=== PATIENT | male | born 1965 | race Caucasian/White ===

== ENCOUNTER 2021-10-20 15:54 | Emergency (ER) | payer MEDICARE, SELFPAY ==
[2021-10-20 16:38] VITALS: BP 145/81; PULSE 81; RESP 17; TEMP 36.8; O2SAT 95; BMI 53.7
--- NOTE | 2021-10-20 16:46 | HMH.EDUTC ---
[facility] [place] Clinical Impression: Hypertension Qualifiers: Hypertension type: primary hypertension Qualified Code(s): I10 - Essential (primary) hypertension Disposition: Home, Self-Care Condition on Discharge: Good Instructions: DI for Malignant Hypertension Additional Instructions: Monitor BP at home Prescriptions: Nebivolol HCl [Bystolic] 2.5 mg PO DAILY 30 Days #30 tab Transmission Status: Pending to [id number] Referrals: Orly Benitez APRN [Primary Care Provider] - Time of Disposition: 17:09 Medical Decision Making - Yony Inquiry Pt receiving controlled substance: No Vital Signs: 10/20/21 16:38 Temperature 98.3 F Temperature Source Oral Pulse Rate [Left Radial] 81 Respiratory Rate 17 Blood Pressure [Right Arm] 145/81 H Blood Pressure Mean [Right Arm] 102 02 Sat by Pulse Oximetry 95 - Lab Data Lab results reviewed: Yes: I reviewed the patient's lab results. [facility] - General Stated complaint: headcahe and possible high blood pressure Time Seen by Provider: 10/20/21 16:46 Source of Information: Patient Description of Symptoms (Recalled from Triage Doc. by RN): patient comes in today for high blood pressure and headache. patient states his blood pressure has been up since this morning. HEENT Symptoms (Recalled from RN notes): Yes Resp Symptoms (Recalled from RN notes): No Skin Symptoms (Recalled from RN notes): No MS Symptoms (Recalled from RN notes): No Functional Status (Recalled from RN notes): wnl - History of Present Illness Provider Complaint: 56 year old white male, states blood pressure has been up all day. Has headache on the top of his head. Checked blood pressure at home - last reading before coming in was 170/110. Takes Diovan 160 mg in the morning, amlodipine 5 mg QHS. Takes Clonidine 0.1 mg PRN. Took 2 clonidine prior to coming. His daughter told him to come get checked out. Blood pressure lower, head still hurts. Denies blurry vision, confusion, sinus pain/pressure, vertigo, chest pain, nausea/vomiting, clamminess, etc. States he has urinated several times today. Urine isn't dark but isn't pale either. He doesn't think he has eaten today. He is under some stress due to his being in with cancer. Onset (ago): day(s) (1) Location: head Relieving factors: none Exacerbating factors: none Associated symptoms: headaches Treatments prior to arrival: other (Clonidine) - Related Data Previous Rx's Medication Instructions Recorded Nebivolol HCl [Bystolic] 2.5 mg PO DAILY 30 Days #30 tab 10/20/21 Allergies Allergy/AdvReac Type Severity Reaction Status Date / Time No Known Allergies Allergy Verified 10/20/21 16:47 - Worker's Comp Is this a Worker's Comp case?: No [facility] History - Hepatitis A Screen Attestation statement:: This patient has been screened for Hepatitis A risk factors. I have reviewed the patient's past medical history: Yes ROS Obtained: Yes All systems reviewed & no additional complaints - Constitutional Constitutional: Reports headache(s) Physical Exam - General General appearance: alert, in no apparent distress - Head Head exam: normocephalic - Eye Eye exam: Present: PERRL - ENT ENT exam: Present: normal oropharynx, TM's normal bilaterally - Neck Neck exam: Present: normal inspection. Absent: lymphadenopathy - Chest Chest inspection: Present: normal inspection, symmetric chest wall rise - Respiratory Respiratory exam: Present: normal lung sounds bilaterally. Absent: respiratory distress - Cardiovascular Cardiovascular exam: Present: regular rate, normal rhythm - Neurological Exam Neurological exam: Present: alert, oriented X3 - Psychiatric Psychiatric exam: Present: normal affect, normal mood - Skin Skin exam: Present: warm, dry, intact
[2021-10-20 17:13] VITALS: BP 145/81; PULSE 81; RESP 17; TEMP 36.8
[2021-10-20 17:14] LABS: POC Glucose,Bedside 98 (70-110)
== END 2021-10-20 17:13 | disposition home or self-care (01) ==
PROVIDERS: Emergency Provider Physician Assistant; PCP Nurse Practitioner
DX: I10 Essential (primary) hypertension (principal); Z79.899 Other long term (current) drug therapy
CPT/HCPCS: 82962; 99212; G0463

== ENCOUNTER 2021-12-01 03:31 | Emergency (ER) | payer MEDICARE, SELFPAY ==
[2021-12-01 03:32] VITALS: BP 119/72; PULSE 85; RESP 19; TEMP 37.1; O2SAT 99; BMI 50.5
--- NOTE | 2021-12-01 03:37 | ECG_ITS ---
APPROVED REPORT Exam: Resting ECG HR:75 bpm ECG Measurements Heart Rate 75 AXES VA 164 P 78 QRSd 97 QRS 69 QT 383 T 60 QTc 412 Conclusion SINUS RHYTHM NORMAL ECG UNCONFIRMED REPORT Electronically signed by : Blas Gallardo MD 12/02/2021 16:25:15
[2021-12-01 03:45] VITALS: BP 114/73; BP 119/72; BP 87/61; PULSE 79; PULSE 84; PULSE 88
--- NOTE | 2021-12-01 03:58 | XR_ITS ---
PROCEDURE INFORMATION: Exam: XR Chest Exam date and time: 12/01/2021 3:52 AM Age: 56 years old Clinical indication: Other: Low blood pressure; Additional info: Low BP TECHNIQUE: Imaging protocol: Radiologic exam of the chest. Views: 2 views. COMPARISON: No relevant prior studies available. FINDINGS: Tubes, catheters and devices: Thoracic nerve stimulator is in place. Lungs: Atelectasis and/or scarring in the mid left lung. Pleural spaces: Small left pleural effusion. No pneumothorax. Heart/Mediastinum: Unremarkable. No cardiomegaly. Bones/joints: ACDF hardware in the cervical spine. IMPRESSION: Small left pleural effusion with atelectasis and/or scarring in the mid left lung.
--- NOTE | 2021-12-01 04:00 | PC.NURSE ---
Pt gone to RAD for CXR
[2021-12-01 04:05] LABS: Basophils # 0.2 K/mm3 (0-0.2); Basophils % 2.7 % (0.1-2.0); Eosinophils # 0.2 K/mm3 (0.0-0.4); Eosinophils % 3.2 % (0.1-12.0); Hematocrit 43.8 % (42.0-52.0); Hemoglobin 14.1 g/dL (14.1-18.0); Lymphocytes # 2.7 K/mm3 (0.7-4.5); Lymphocytes % 38.3 % (10-50); Mean Corpuscular HGB Conc 32.2 g/dL (31.8-35.4); Mean Corpuscular Hemoglobin 30.1 pg (27.0-31.2); Mean Corpuscular Volume 93.5 fl (80-94); Mean Platelet Volume 9.3 fl (7.4-10.4); Monocytes # 0.5 K/mm3 (0.1-1.0); Monocytes % 7.1 % (1.7-9.3); Neutrophils # 3.5 K/mm3 (1.8-7.8); Neutrophils % 48.6 % (37.0-80.0); Platelet Count 184 K/mm3 (142-424); Red Blood Count 4.68 M/mm3 (4.60-6.20); Red Cell Distribution Width 13.9 % (11.5-17.5); White Blood Count 7.1 K/mm3 (4.8-10.8)
[2021-12-01 04:09] LABS: Alanine Aminotransferase 28 U/L (12-78); Albumin Level 3.8 g/dl (3.5-5.0); Alkaline Phosphatase 103 U/L (38-126); Anion Gap 8.5 mEq/L (5-15); Aspartate Amino Transferase 39 U/L (17-59); Bilirubin,Unconjugated 0.3 mg/dL (0.0-1.1); Blood Urea Nitrogen 11 mg/dl (9-20); Calcium 9.5 mg/dl (8.4-10.2); Carbon Dioxide 35 mmol/L (22.0-30.0); Chloride 97 mmol/L (98-107); Creatinine Clearance Estimated 112 mL/min (50-200); Estimated Glomerular Filt Rate 88 ml/min (>60); GFR (African American) 106 ML/MIN (>60); Glucose 141 mg/dl (74-100); Magnesium 1.4 mg/dl (1.6-2.3); Potassium 3.5 mmoL/L (3.5-5.1); Sodium 137 mmol/L (136-145); Total Protein,Serum 6.5 g/dl (6.3-8.2)
[2021-12-01 04:11] VITALS: BP 111/66; PULSE 73; O2SAT 96
[2021-12-01 04:14] LABS: Bilirubin,Direct < 0.1 mg/dl (0.0-0.4); Bilirubin,Total < 0.1 mg/dl (0.2-1.3); C-Reactive Protein 5.1 mg/L (0-4)
[2021-12-01 04:20] LABS: NT Pro Brain Natriuretic Pep. 13.9 pg/mL (0-125)
[2021-12-01 04:28] LABS: Procalcitonin 0.076 ng/mL (0.0-2.0)
[2021-12-01 04:31] LABS: Erythrocyte Sedimentation Rate 18 mm/hr (0-20)
[2021-12-01 04:32] LABS: Troponin I < 0.01 ng/ml (0.00-0.034)
[2021-12-01 04:36] VITALS: BP 120/79; PULSE 76; O2SAT 96
--- NOTE | 2021-12-01 04:53 | PC.NURSE ---
PT UPDATED WITH POC. IVF INFUSING WITHOUT DIFFICULTY. PT DENIES ALL CARE NEEDS. FAMILY REMAINS AT BEDSIDE. WCM.
--- NOTE | 2021-12-01 05:05 | HMH.EDDIZZ ---
ED Disposition Clinical Impression: Orthostatic hypotension Disposition: Home, Self-Care Condition on Discharge: Good Instructions: Dizziness, Nonvertigo Additional Instructions: will adjust meds Referrals: Orly Benitez APRN [Primary Care Provider] - - Critical Care Critical Care Time: No Attestation: On 12/01/21, the high probability of a clinically significant, sudden or life threatening deterioration of the following system(s) required my full and direct attention, intervention and personal management. The time I documented below is in addition to time spent performing reported procedures but includes the following listed in this critical care notation. Medical Decision Making - Medical Records Medical records reviewed: Yes: I reviewed the patient's medical records. - Oyny Inquiry Pt receiving controlled substance: No Vital Signs: 12/01/21 03:32 12/01/21 03:45 12/01/21 04:11 Temperature 98.7 F Temperature Source Oral Pulse Rate 73 Pulse Rate [Orthostatic Lying] 84 Pulse Rate [Orthostatic Sitting] 79 Pulse Rate [Orthostatic Standing] 88 Pulse Rate [Right] 85 Respiratory Rate 19 Blood Pressure 111/66 Blood Pressure [Orthostatic Lying] 114/73 Blood Pressure [Orthostatic Sitting] 119/72 Blood Pressure [Orthostatic Standing] 87/61 L Blood Pressure [Right Arm] 119/72 Blood Pressure Mean 81 Blood Pressure Mean [Right Arm] 87 Blood Pressure Source [Right Arm] Automatic Cuff 02 Sat by Pulse Oximetry 99 96 Oxygen Delivery Method Room Air 12/01/21 04:36 Temperature Temperature Source Pulse Rate 76 Pulse Rate [Orthostatic Lying] Pulse Rate [Orthostatic Sitting] Pulse Rate [Orthostatic Standing] Pulse Rate [Right] Respiratory Rate Blood Pressure 120/79 Blood Pressure [Orthostatic Lying] Blood Pressure [Orthostatic Sitting] Blood Pressure [Orthostatic Standing] Blood Pressure [Right Arm] Blood Pressure Mean 92 Blood Pressure Mean [Right Arm] Blood Pressure Source [Right Arm] 02 Sat by Pulse Oximetry 96 Oxygen Delivery Method - Lab Data Lab results reviewed: Yes: I reviewed the patient's lab results. Lab Results 12/01/21 03:48: WBC 7.1, RBC 4.68, Hgb 14.1, Hct 43.8, MCV 93.5, MCH 30.1, MCHC 32.2, RDW 13.9, Plt Count 184, MPV 9.3, Neut % (Auto) 48.6, Lymph % (Auto) 38.3, Early % (Auto) 7.1, Eos % (Auto) 3.2, Baso % (Auto) 2.7 H, Neut # (Auto) 3.5, Lymph # (Auto) 2.7, Early # (Auto) 0.5, Eos # (Auto) 0.2, Baso # (Auto) 0.2, ESR 18 12/01/21 03:48: Sodium 137, Potassium 3.5, Chloride 97 L, Carbon Dioxide 35 H, Anion Gap 8.5, BUN 11, Creatinine 0.90, Estimated Creat Clear 112, Estimated GFR 88, Est GFR ( Amer) 106, Glucose 141 H, Calcium 9.5, Magnesium 1.4 L, Total Bilirubin < 0.1 L, Direct Bilirubin < 0.1, Conjugated Bilirubin 0.0, Indirect Bilirubin 0.0, Unconjugated Bilirubin 0.3, AST 39, ALT 28, Alkaline Phosphatase 103, Troponin I < 0.01, C-Reactive Protein 5.1 H, Total Protein 6.5, Albumin 3.8, Procalcitonin 0.076 12/01/21 03:48: NT-Pro-B Natriuret Pep 13.9 Result diagrams: 12/01/21 03:48 12/01/21 03:48 Orders (Tests/Meds): ED MEDICATIONS Generic Name Dose Route Start Last Admin Trade Name Freq PRN Reason Stop Dose Admin Sodium Chloride 1,000 mls @ 999 mls/hr 12/01/21 04:00 12/01/21 04:09 Sod Chlor 0.9% 1000ml Bag IV 12/01/21 05:00 999 mls/hr .Q1H1M MEERA Administration ORDERS Category Date Time Status CXR 2 view (NOT portable) [XR chest 2V] Stat Exams 12/01/21 03:58 Taken Troponin I Q3H Lab 12/01/21 07:00 Ordered Troponin I Q3H Lab 12/01/21 10:00 Ordered - ECG Data Tracing #1 Normal Sinus Rhythm: Yes Ischemic changes: non-specific ST-T wave changes - SUNITA Score for Non-Stemi Age of Patient: 50-59 years old Heart Rate: 70-89 bpm Systolic Blood Pressure: 100-119 mmHg Serum Creatinine: 0.80-1.19 mg/dl CHF Killip Class: I-No CHF Other Risk Factors: None Non-Stemi Risk Score: 100
[2021-12-01 05:23] VITALS: BP 131/84; PULSE 79; RESP 18; TEMP 36.7; O2SAT 98
== END 2021-12-01 05:24 | disposition home or self-care (01) ==
PROVIDERS: Emergency Provider Emergency Medicine; PCP Nurse Practitioner
DX: I95.1 Orthostatic hypotension (principal)
CPT/HCPCS: 71046; 80048; 80076; 83735; 83880; 84145; 84484; 85025; 85651; 86140; 93005; 96361; 99284

== ENCOUNTER 2022-06-13 11:45 | Emergency (ER) | payer MEDICARE, SELFPAY ==
[2022-06-13 11:45] VITALS: BP 156/105; PULSE 71; RESP 18; TEMP 36.7; O2SAT 95; BMI 54.3
--- NOTE | 2022-06-13 11:57 | ECG_ITS ---
APPROVED REPORT Exam: Resting ECG HR:71 bpm ECG Measurements Heart Rate 71 AXES [place] 173 P 71 QRSd 97 QRS 69 QT 386 T 51 QTc 408 Conclusion SINUS RHYTHM NORMAL ECG UNCONFIRMED REPORT Electronically signed by : Blas Gallardo MD 06/13/2022 14:22:09
--- NOTE | 2022-06-13 12:08 | XR_ITS ---
FINAL REPORT CLINICAL HISTORY: soa x2 days COMPARISON: 12/01/2021 FINDINGS: PORTABLE CHEST The heart is normal in size. The mediastinum is unremarkable. The lungs are clear. There is no pneumothorax. IMPRESSION: No acute process. Reviewed, Interpreted and Dictated by Poornima Pritchard MD Transcribed by Carlie Clemons Authenticated and [facility]
[2022-06-13 12:25] LABS: Basophils # 0.1 K/mm3 (0-0.2); Basophils % 1.2 % (0.1-2.0); Eosinophils # 0.2 K/mm3 (0.0-0.4); Eosinophils % 3.2 % (0.1-12.0); Hematocrit 37.6 % (42.0-52.0); Hemoglobin 12.6 g/dL (14.1-18.0); Lymphocytes # 1.8 K/mm3 (0.7-4.5); Lymphocytes % 24.3 % (10-50); Mean Corpuscular HGB Conc 33.5 g/dL (31.8-35.4); Mean Corpuscular Hemoglobin 30.3 pg (27.0-31.2); Mean Corpuscular Volume 90.4 fl (80-94); Monocytes # 0.3 K/mm3 (0.1-1.0); Monocytes % 4.7 % (1.7-9.3); Neutrophils # 4.8 K/mm3 (1.8-7.8); Neutrophils % 66.6 % (37.0-80.0); Platelet Count 187 K/mm3 (142-424); Red Blood Count 4.16 M/mm3 (4.60-6.20); Red Cell Distribution Width 14.4 % (11.5-17.5); White Blood Count 7.2 K/mm3 (4.8-10.8)
[2022-06-13 12:26] LABS: Alanine Aminotransferase 25 U/L (12-78); Albumin/Globulin Ratio 1.5 (1.1-1.8); Alkaline Phosphatase 110 U/L (38-126); Anion Gap 8.3 mEq/L (5-15); Aspartate Amino Transferase 36 U/L (17-59); Bilirubin,Total 0.6 mg/dl (0.2-1.3); Blood Urea Nitrogen 7 mg/dl (9-20); Carbon Dioxide 34 mmol/L (22.0-30.0); Chloride 98 mmol/L (98-107); Creatinine Clearance Estimated 144 mL/min (50-200); Estimated Glomerular Filt Rate 118 ml/min (>60); GFR (African American) 142 ML/MIN (>60); Globulin 2.6 g/dL (1.3-3.2); Glucose 130 mg/dl (74-100); Potassium 3.3 mmoL/L (3.5-5.1); Sodium 137 mmol/L (136-145); Total Protein,Serum 6.6 g/dl (6.3-8.2)
[2022-06-13 12:31] LABS: D-Dimer 0.72 ug/mL (0.0-0.5)
--- NOTE | 2022-06-13 12:35 | CT_ITS ---
FINAL REPORT TECHNIQUE: Thin section axial CT with contrast with multiplanar reconstruction. This study was performed with techniques to keep radiation doses as low as reasonably achievable (ALARA). Individualized dose reduction techniques using automated exposure control or adjustment of mA and/or kV according to the patient's size were employed. CLINICAL HISTORY: Dimer elevated, SOA FINDINGS: Pulmonary vessels enhance in normal fashion without evidence of embolism. Thoracic aorta shows no dissection or aneurysm. No pulmonary mass or infiltrate is present. There are scattered areas of scarring, likely sequela of prior pneumonia, greatest in the left lower lobe. There is left pleural scarring. There is no significant pleural effusion. There is no significant pericardial effusion. No mediastinal or hilar adenopathy is present. There is a small hiatal hernia. IMPRESSION: No evidence of pulmonary embolism. Reviewed, Interpreted and Dictated by Poornima Pritchard MD Transcribed by Jessica Way Authenticated and [facility]
--- NOTE | 2022-06-13 12:37 | HMH.EDGENADL ---
Discharge Plan Disposition Patient Disposition: Home, Self-Care Prescriptions Prescriptions: No Action nebivolol 2.5 MG tablet 2.5 mg PO DAILY 30 Days Qty: 30 0RF Referrals Follow up/Referrals: Orly Benitez APRN [Primary Care Provider] - See instructions Activity Restrictions/Add. Instructions Additional Instructions/Restrictions: Follow-up with your primary care physician within the next few days. Return the emergency room for chest pain difficulty breathing or any other concerns within the next 8 hours Clinical Impressions Clinical Impression: Acute dyspnea Discharge ED Provider: Goyo Ellis General Adult HPI General Chief complaint: Shortness of Breath/Dyspnea Stated complaint: sob Time Seen by Provider: 06/13/22 12:10 Mode of Arrival: Ambulatory Source of Information: Patient Limitations: No Limitations Description of Symptoms (Recalled from ER Triage Doc. by RN): Pt reports SOA x2 days. Denies fever, cough, chest pain. Pt reports hx of afib with hx of ablation x2. History of Present Illness HPI narrative: 56-year-old male with history of hypertension and sleep apnea presents with shortness of air for last few days he says that he cannot catch his breath. It is worse with exertion. No chest pain. No abdominal pain nausea vomiting diarrhea. No leg swelling recent surgeries recent travel or history of pulmonary embolisms or deep venous thrombosis. No fever no cough no exposures to COVID. He says that the symptoms have been worse since he got COVID and was concerned about long COVID as well Related Data Previous Rx's Medication Instructions Recorded nebivolol 2.5 mg tablet 2.5 mg PO DAILY 30 days #30 tabs 10/20/21 Allergies Allergy/AdvReac Type Severity Reaction Status Date / Time No Known Allergies Allergy Verified 10/20/21 16:47 [facility] Disclaimer: The information contained in this section may have been updated after the patient was seen, as this information can be updated by other users. Social History Smoking Status: Former smoker alcohol intake: never current occupational status: employed Travel in the last 8 weeks: None ROS Obtained: Yes All systems reviewed & no additional complaints except as documented Constitutional Constitutional: Denies fatigue and Denies fever(s) Eyes Eyes: Denies dry eyes ENT Ears, Nose, Mouth, and Throat: Denies hearing loss and Denies throat swelling Cardiovascular Cardiovascular: Denies chest pain, Denies diaphoresis, Reports dyspnea and Reports dyspnea on exertion Respiratory Respiratory: Reports dyspnea and Reports dyspnea on exertion Gastrointestinal Gastrointestingal: Denies abdominal pain, diarrhea, nausea or vomiting Musculoskeletal Musculoskeletal: Denies abnormal gait and Denies arthralgias Integumentary/Breasts Skin/Breast: Denies dry skin and Denies rash Neurologic Neurologic: Denies abnormal gait Endocrine Endocrine: Denies fatigue Hematologic/Lymphatic Henatologic/Lymphatic: Denies easy bleeding Allergic/Immunologic Allergic/Immunologic: Denies throat swelling Physical Exam General General appearance: alert and in no apparent distress Eye Eye exam: Present PERRL and EOMI ENT ENT exam: Present normal exam and normal oropharynx Neck Neck exam: Present normal inspection Chest Chest inspection: Present symmetric chest wall rise Respiratory Respiratory exam: Present normal lung sounds bilaterally; Absent respiratory distress Cardiovascular Cardiovascular exam: Present regular rate and normal rhythm Abdominal Exam Abdominal exam: Present soft; Absent distention, tenderness, guarding, rebound, Arrieta's sign or tenderness at McBurney's Point Rectal Exam Rectal exam: Present deferred Back Exam Back exam: Present normal inspection Neurological Exam Neurological exam: Present alert and oriented X3 Psychiatric Psychiatric exam: Present normal affect and normal mood Skin Skin exam: Present warm, dry and intact Lymph
[2022-06-13 12:39] LABS: NT Pro Brain Natriuretic Pep. 108 pg/mL (0-125)
[2022-06-13 12:41] LABS: Troponin I < 0.01 ng/ml (0.00-0.034)
[2022-06-13 12:44] LABS: Coronavirus 19, PCR Not Detected (NotDetected); Influenza A, PCR Not Detected (NotDetected); Influenza B, PCR Not Detected (NotDetected)
--- NOTE | 2022-06-13 13:40 | PC.NURSE ---
pt resting in bed, given warm blanket and pillow, updated pt we are waiting on cta results
[2022-06-13 13:41] VITALS: BP 171/103; PULSE 68; RESP 19; O2SAT 94
[2022-06-13 14:01] VITALS: BP 173/100; PULSE 62; RESP 18; O2SAT 94
[2022-06-13 15:01] VITALS: BP 169/111; PULSE 69; RESP 18; O2SAT 93
[2022-06-13 15:31] VITALS: BP 165/90; PULSE 69; RESP 16; O2SAT 94
--- NOTE | 2022-06-13 16:09 | PC.NURSE ---
lab states 8 minutes until result of troponin
[2022-06-13 16:18] LABS: Troponin I < 0.01 ng/ml (0.00-0.034)
[2022-06-13 16:39] VITALS: BP 150/99; PULSE 73; RESP 18; TEMP 36.7; O2SAT 93
== END 2022-06-13 16:39 | disposition home or self-care (01) ==
PROVIDERS: Emergency Provider Emergency Medicine; PCP Nurse Practitioner
DX: R06.00 Dyspnea, unspecified (principal); R06.02 Shortness of breath; I10 Essential (primary) hypertension; Z87.891 Personal history of nicotine dependence
CPT/HCPCS: 36415; 71045; 71275; 80053; 83880; 84484; 85025; 85378; 93005; 99285; C9803; Q9967; U0003; U0005

== ENCOUNTER → 2022-09-19 10:33 | Outpatient (CLI) | payer MEDICARE, SELFPAY ==
[2022-09-19 15:40] LABS: Chloride 88 mmol/L (98-107)
[2022-09-19 15:41] LABS: Potassium 3.1 mmoL/L (3.5-5.1); Sodium 137 mmol/L (136-145)
[2022-09-19 15:43] LABS: Alanine Aminotransferase 28 U/L (12-78); Albumin Level 3.8 g/dl (3.5-5.0); Albumin/Globulin Ratio 1.7 (1.1-1.8); Alkaline Phosphatase 102 U/L (38-126); Anion Gap 17.1 mEq/L (5-15); Aspartate Amino Transferase 46 U/L (17-59); Bilirubin,Total 0.5 mg/dl (0.2-1.3); Blood Urea Nitrogen 10 mg/dl (9-20); Carbon Dioxide 35 mmol/L (22.0-30.0); Estimated Glomerular Filt Rate 88 ml/min (>60); GFR (African American) 106 ML/MIN (>60); Globulin 2.2 g/dL (1.3-3.2)
[2022-09-19 15:44] LABS: Calcium 9.2 mg/dl (8.4-10.2); Cholesterol 184 mg/dl (140-200); Glucose 125 mg/dl (74-100); HDL Cholesterol 46 mg/dl (40-60); Triglycerides 160 mg/dl (30-150); VLDL Cholesterol 32 mg/dL (0-40)
[2022-09-19 15:55] LABS: Direct LDL Cholesterol 119.84 mg/dL (100-129)
[2022-09-19 15:58] LABS: Basophils % 0.8 % (0.1-2.0); Eosinophils # 0.2 K/mm3 (0.0-0.4); Eosinophils % 3.5 % (0.1-12.0); Hematocrit 41.7 % (42.0-52.0); Hemoglobin 13.5 g/dL (14.1-18.0); Lymphocytes # 2.3 K/mm3 (0.7-4.5); Lymphocytes % 43.2 % (10-50); Mean Corpuscular HGB Conc 32.4 g/dL (31.8-35.4); Mean Corpuscular Volume 89.3 fl (80-94); Mean Platelet Volume 9.6 fl (7.4-10.4); Monocytes # 0.3 K/mm3 (0.1-1.0); Monocytes % 6.2 % (1.7-9.3); Neutrophils # 2.4 K/mm3 (1.8-7.8); Neutrophils % 46.2 % (37.0-80.0); Platelet Count 175 K/mm3 (142-424); Red Blood Count 4.67 M/mm3 (4.60-6.20); Red Cell Distribution Width 13.9 % (11.5-17.5); White Blood Count 5.3 K/mm3 (4.8-10.8)
[2022-09-19 17:39] LABS: 25-OH Vitamin D, Total 40.5 ng/mL (30-100)
[2022-09-19 20:16] LABS: Prostate Specific Ag Screen 0.5 ng/ml (0.0-4.0)
== END ==
PROVIDERS: PCP Nurse Practitioner Family; Visit Provider Nurse Practitioner Family
DX: Z12.5 Encounter for screening for malignant neoplasm of prostate (principal); I10 Essential (primary) hypertension; E55.9 Vitamin D deficiency, unspecified
CPT/HCPCS: 80053; 80061; 82306; 84443; 85025; G0103

== ENCOUNTER → 2022-11-11 12:36 | Outpatient (CLI) | payer MEDICARE, SELFPAY | LOC: RT 12:37 | PROVIDERS: PCP Nurse Practitioner Family; Visit Provider Nurse Practitioner Family | DX: I10 Essential (primary) hypertension (principal); R06.09 Other forms of dyspnea | CPT/HCPCS: 93306 ==

== ENCOUNTER 2023-08-06 14:00 | Outpatient (CLI) | payer MEDICARE, SELFPAY ==
--- NOTE | 2023-08-06 14:01 | CA_ITS ---
APPROVED REPORT EXAM: Comprehensive 2D, Doppler, and color-flow Echocardiogram Stave Block Splitter: Opal Garrido CRT Ht: 6 ft 3 in Wt: 434lbs BSA: 3.05 BP: 135/83 mmHg Indications: Shortness of Breath, Atrial Fibrillation, Obesity, Dyspnea, Hyperlipidemia, Hypertension/HDD, ABLATION 2009, 2011 2D Dimensions LA Volume 55.10 mL LA Volume Index 17.70 mL/m2 (M/F) 16-34 M-Mode Dimensions RVDd 3.44 cm (0.9-2.6) LA Diam 4.02 cm (1.9-4.0) LVDd 4.52 cm (3.5-5.7) LVDs 2.72 cm (3.5-5.7) IVSd 1.85 cm (0.6-1.1) PWd 1.08 cm (0.6-1.1) EF (Teich) 70.60% FS 39.80% EDV (Teich) 93.40 mL TAPSE 2.21 (<1.7) ESV (Teich) 27.50 mL LV Diastology E Decel Time 157 (160-240 msec) E/A Ratio 0.99 MED A' 9.20 cm/s LAT A' 9.70 cm/s Aortic Valve AO Peak GR. 5.10 mmHg Mitral Valve MV A Velocity 60.0 (40-130 cm/s) E/A Ratio 0.99 Pulmonary Valve PV Peak Velocity 76.0 (50-150 cm/s) Tricuspid Valve TR P. Velocity 82.00 cm/s RAP Estimate 10.00 mmHg RVSP 12.70 mmHg Left Ventricle The left ventricle is normal size. The left ventricular systolic function is normal. The left ventricular ejection fraction is within the normal range. There is normal left ventricular wall thickness. There is normal LV segmental wall motion. The left ventricular diastolic function is normal. LVEF is 55%. Right Ventricle The right ventricle is not very well-visualized, but is grossly normal in size and function. Atria The left atrium size is normal. The right atrium is not well-visualized. The interatrial septum is not well-visualized. Aortic Valve The aortic valve opens well. There is no aortic valvular stenosis. No aortic regurgitation is present. Mitral Valve The mitral valve is normal in structure. No evidence of mitral valve stenosis. There is no mitral valve regurgitation noted. Tricuspid Valve The tricuspid valve leaflets are thin and pliable. Trace tricuspid regurgitation. There is insufficient TR jet to estimate RVSP. Pulmonic Valve The pulmonary valve is not well visualized. Great Vessels The aortic root is normal in size. The ascending aorta is normal in size. The IVC is not well-visualized. Pericardium There is no pericardial effusion. Other Information Study Quality: Technically Difficult Conclusion Technically difficult study due to poor acoustic windows Normal biventricular systolic function. No significant valvular stenosis or regurgitation in the visualized valves. Electronically signed by : Gricelda Vargas MD 08/10/2023 19:02:30
[2023-08-06 15:08] LABS: Basophils # 0.1 K/mm3 (0-0.2); Basophils % 1.4 % (0.1-2.0); Eosinophils # 0.2 K/mm3 (0.0-0.4); Eosinophils % 2.8 % (0.1-12.0); Hematocrit 44.2 % (42.0-52.0); Lymphocytes % 27.9 % (10-50); Mean Corpuscular HGB Conc 33.9 g/dL (31.8-35.4); Mean Corpuscular Hemoglobin 31.2 pg (27.0-31.2); Mean Platelet Volume 9.1 fl (7.4-10.4); Monocytes # 0.5 K/mm3 (0.1-1.0); Monocytes % 6.4 % (1.7-9.3); Neutrophils # 4.5 K/mm3 (1.8-7.8); Neutrophils % 61.7 % (37.0-80.0); Platelet Count 208 K/mm3 (142-424); Red Cell Distribution Width 13.9 % (11.5-17.5); White Blood Count 7.3 K/mm3 (4.8-10.8)
[2023-08-06 16:07] LABS: Chloride 93 mmol/L (98-107); Sodium 137 mmol/L (136-145)
[2023-08-06 16:08] LABS: Potassium 3.1 mmoL/L (3.5-5.1)
[2023-08-06 16:10] LABS: Alanine Aminotransferase 28 U/L (12-78); Albumin Level 3.8 g/dl (3.5-5.0); Alkaline Phosphatase 99 U/L (38-126); Aspartate Amino Transferase 46 U/L (17-59); Bilirubin,Direct 0.2 mg/dl (0.0-0.4); Bilirubin,Indirect 0.2 mg/dL (0.0-0.9); Bilirubin,Total 0.4 mg/dl (0.2-1.3); Bilirubin,Unconjugated 0.2 mg/dL (0.0-1.1); Blood Urea Nitrogen 12 mg/dl (9-20); Calcium 9.2 mg/dl (8.4-10.2); Cholesterol 215 mg/dl (140-200); Estimated Glomerular Filt Rate 100 ml/min (>60); GFR (African American) 121 ML/MIN (>60); Glucose 137 mg/dl (74-100); Total Protein,Serum 6.3 g/dl (6.3-8.2); Triglycerides 230 mg/dl (30-150); VLDL Cholesterol 46 mg/dL (0-40)
[2023-08-06 16:11] LABS: Chol/HDL Ratio 5.5 (1-3.5); HDL Cholesterol 39 mg/dl (40-60); Magnesium 1.3 mg/dl (1.6-2.3)
[2023-08-06 16:17] LABS: Anion Gap 8.1 mEq/L (5-15); Carbon Dioxide 39 mmol/L (22.0-30.0)
[2023-08-06 16:29] LABS: Direct LDL Cholesterol 124.48 mg/dL (100-129); Free T4 (Free Thyroxine) 1.16 ng/dl (0.78-2.19)
[2023-08-06 16:42] LABS: Thyroid Stimulating Hormone 2.47 uIU/mL (0.465-4.68)
== END 2023-08-06 23:59 ==
PROVIDERS: PCP Nurse Practitioner Family; Visit Provider Physician Assistant
DX: I10 Essential (primary) hypertension (principal); Z98.890 Other specified postprocedural states; E78.5 Hyperlipidemia, unspecified; R06.09 Other forms of dyspnea; Z79.899 Other long term (current) drug therapy
CPT/HCPCS: 36415; 80048; 80061; 80076; 83735; 84439; 84443; 85025; 93306

== ENCOUNTER 2024-08-17 11:05 | Outpatient (CLI) | payer MEDICARE, SELFPAY ==
[2024-08-17 18:45] LABS: Basophils # 0.1 K/mm3 (0-0.2); Basophils % 1.7 % (0.1-2.0); Eosinophils # 0.2 K/mm3 (0.0-0.4); Eosinophils % 3.2 % (0.1-12.0); Hematocrit 44.8 % (42.0-52.0); Hemoglobin 14.5 g/dL (14.1-18.0); Lymphocytes # 1.7 K/mm3 (0.7-4.5); Lymphocytes % 28.5 % (10-50); Mean Corpuscular HGB Conc 32.4 g/dL (31.8-35.4); Mean Corpuscular Hemoglobin 29.2 pg (27.0-31.2); Mean Corpuscular Volume 90.1 fl (80-94); Mean Platelet Volume 11.6 fl (7.4-10.4); Monocytes # 0.5 K/mm3 (0.1-1.0); Monocytes % 8.2 % (1.7-9.3); Neutrophils # 3.5 K/mm3 (1.8-7.8); Neutrophils % 58.2 % (37.0-80.0); Platelet Count 192 K/mm3 (142-424); Red Blood Count 4.97 M/mm3 (4.60-6.20); Red Cell Distribution Width 13.1 % (11.5-17.5)
[2024-08-17 20:28] LABS: Alanine Aminotransferase 28 U/L (12-78); Albumin/Globulin Ratio 1.5 (1.1-1.8); Alkaline Phosphatase 108 U/L (38-126); Anion Gap 9.1 mEq/L (5-15); Aspartate Amino Transferase 40 U/L (17-59); Bilirubin,Total 0.6 mg/dl (0.2-1.3); Blood Urea Nitrogen 11 mg/dl (9-20); Calcium 9.9 mg/dl (8.4-10.2); Carbon Dioxide 38 mmol/L (22.0-30.0); Chloride 95 mmol/L (98-107); Chol/HDL Ratio 3.1 (1-3.5); Cholesterol 178 mg/dl (140-200); Estimated Glomerular Filt Rate 100 ml/min (>60); GFR (African American) 121 ML/MIN (>60); Globulin 2.7 g/dL (1.3-3.2); Glucose 92 mg/dl (74-100); HDL Cholesterol 57 mg/dl (40-60); Potassium 4.1 mmoL/L (3.5-5.1); Sodium 138 mmol/L (136-145); Total Protein,Serum 6.7 g/dl (6.3-8.2); Triglycerides 103 mg/dl (30-150); VLDL Cholesterol 21 mg/dL (0-40)
[2024-08-17 20:45] LABS: Hemoglobin A1C 5.6 % (4.0-6.0)
[2024-08-17 20:57] LABS: Prostate Specific Ag Screen 0.5 ng/ml (0.0-4.0); Thyroid Stimulating Hormone 5.31 uIU/mL (0.465-4.68)
[2024-08-17 21:11] LABS: HIV Combo NEGATIVE (Negative)
[2024-08-17 21:16] LABS: Hepatitis C Ab Qual. W/ RFX NEGATIVE (Negative)
[2024-08-17 22:15] LABS: 25-OH Vitamin D, Total 35.3 ng/mL (30-100)
== END 2024-08-17 23:59 | disposition home or self-care (01) ==
LOC: LAB.DROPOF 08-18 12:37
PROVIDERS: PCP Nurse Practitioner Family; Visit Provider Nurse Practitioner Family
DX: E83.42 Hypomagnesemia (principal); R53.83 Other fatigue; E87.6 Hypokalemia; E78.2 Mixed hyperlipidemia; I10 Essential (primary) hypertension; Z11.59 Encounter for screening for other viral diseases
CPT/HCPCS: 80053; 80061; 82306; 83036; 84443; 85025; 86803; 87389; G0103